=== PATIENT | female | born 1985 | race Caucasian/White ===

== ENCOUNTER 2017-07-13 14:19 | Emergency (ER) | payer OTHER ==
[~2017-07-13] VITALS: Ht 167.6 cm; Wt 70.8 kg
[~2017-07-13 14:19] MED LIST: B COMPLEX1 CAP PO; DIFLUCAN150 MG PO; LEVOFLOXACIN500 MG PO; VICODIN ES 7501 TAB PO
== END 2017-07-13 16:10 | disposition home or self-care (01) ==
LOC: ED 14:19
DX: S90.31XA Contusion of right foot, initial encounter (principal); Z88.2 Allergy status to sulfonamides; W10.9XXA Fall (on) (from) unspecified stairs and steps, initial encounter; Y93.89 Activity, other specified; Y92.89 Other specified places as the place of occurrence of the external cause; Y99.8 Other external cause status